=== PATIENT | male | born 1995 | race Caucasian/White ===

== ENCOUNTER 2017-05-13 17:18 | Emergency (ER) | payer MEDICAID ==
--- NOTE | 2017-05-13 18:20 | ERNOTE ---
Upper Extremity HPI - General Extremities Pain Location: shoulder: left Time Seen by Provider: 05/13/17 17:29 Source: patient Exam Limitations: no limitations - Immun/Allergies/Home Medications Immunizations: IMMUNIZATION HX Immunizations Up to Date Yes History of Influenza Vaccine No Hx Pneumococcal Vaccination No Allergies/Adverse Reactions: Allergies Allergy/AdvReac Type Severity Reaction Status Date / Time Penicillins Allergy Verified 02/23/16 14:00 Home Medications: HOME MEDICATIONS Omeprazole [Prilosec] 20 mg PO DAILY 12/03/14 [Last Taken Unknown] Ibuprofen [Motrin] 800 mg PO TID PRN #60 tab 12/23/15 [Last Taken Unknown] Lisdexamfetamine Dimesylate [Vyvanse] 60 mg PO DAILY 12/23/15 [Last Taken Unknown] Ibuprofen [Motrin] 600 mg PO Q6H PRN #40 tab 02/23/16 [Last Taken Unknown] Cyclobenzaprine HCl [Flexeril] 10 mg PO TID PRN #30 tab 05/13/17 [Last Taken Unknown] - History of Present Illness Narrative: Patient was walking his dog several days ago and the dog took off running and he fell down and got drug for short ways and strained his left shoulder. He rates the pain as at least moderate in intensity and is having some difficulty using his left arm. Occurred: other - several days ago Location of Incident: other - sidewalk Severity: moderate Method of Injury: Reports: fell, twisted Reason for Fall: Reports: slipped Loss of Consciousness: Reports: no loss of consciousness Other Injuries: Reports: none Review of Systems - Review of Systems Constitutional: Present: See HPI EYE: Present: no symptoms reported ENT: Present: no symptoms reported Respiratory: Present: no symptoms reported Cardiology: Present: no symptoms reported Gastrointestinal/Abdominal: Present: no symptoms reported Genitourinary: Present: no symptoms reported Musculoskeletal: Present: no symptoms reported Skin: Present: See HPI Neurological: Present: no symptoms reported Endocrine: Present: no symptoms reported Hematologic/Lymphatic: Present: no symptoms reported Psych: Present: no symptoms reported - Patient's Past Medical History Patient History - Medical: ADHD, Anxiety, Depression Patient History - Cardiac/Respiratory: No pertinent hx Patient History - Cancer: No Hx of Cancer Patient History - Surgical Procedures: No surgical history Patient History - Other: None - Social History Living Situations: home Abuse History: No History of abuse Psych History: Hx of Anxiety, Hx of Depression Does anyone smoke in the home?: No Smoking Status: Current some day smoker Have you smoked in the past 12 months: Yes Do you dip or chew tobacco: No Alcohol Use: occasionally Drug Use: none - Immunizations Immunizations Up to Date: Yes Hx Pneumococcal Vaccination: No History of Influenza Vaccine: No Physical Exam - Physical Exam General Appearance: Present: wd/wn, alert, moderate distress Head Exam: Present: normal inspection, no evidence of injury Eye Exam: Normal inspection: bilateral, PERRL: bilateral Ears, Nose, Throat: Present: normal ENT inspection, H, normal pharynx Neck: Present: normal inspection, nontender Respiratory: Present: no respiratory distress, normal breath sounds, no accessory muscle use, chest nontender, lungs clear Cardiovascular/Chest: Present: regular rate, rhythm, no murmur, normal peripheral pulses Gastrointestinal/Abdominal: Present: normal bowel sounds, nontender, nondistended, soft, no organomegaly Rectal Exam: Present: deferred Back Exam: Present: normal inspection, normal range of motion Extremity Exam: Present: no edema, decreased range of motion, other - patient has decreased external rotation of left shoulder and somewhat decreased internal rotation left shoulder, also having some difficulty lifting the shoulder against resistance. Neurological Exam: Present: alert, oriented, normal mood/affect Skin Exam: Present: normal color, warm/dry Lymphatic Exam: Present: no adenopathy ED Progress - Vital Signs Patient's Vital Signs:: I have reviewed the patient's vital signs. Vital Signs: Vital Signs 05/13/17 17:29 Temperature 37.1 C Pulse Rate 120 H Respiratory 15 Rate Blood Pressure 140/91 O2 Sat by Pulse 99 Oximetry - X-Ray X-Ray #1 X-Ray: shoulder Interpretation: Reviewed by me - Progress/Reassessment Chief Complaint: Upper Extremity Injury/Problem Plan - Plan Plan: Patient be placed in a sling, will give him Flexeril for any of the difficulty or pain he may be having and he will follow-up with his family physician for ongoing care and possible referral. Patient has Motrin at home that he can take for nonsteroidal relief. Departure Clinical Impression: Sprain of shoulder and upper arm Qualifiers: Encounter type: initial encounter Laterality: left Qualified Code(s): S43.402A - Unspecified sprain of left shoulder joint, initial encounter - Departure Disposition: Home self-care Condition: Good Instructions: Shoulder Sprain Referrals: Vamsi Thayer DO [Primary Care Provider] - Prescriptions: Cyclobenzaprine HCl [Flexeril] 10 mg PO TID PRN #30 tab PRN Reason: MUSCLE SPASMS
[2017-05-13 18:41] VITALS: BP 132/76
== END 2017-05-13 18:37 | disposition home or self-care (01) ==
LOC: ER 17:18
DX: S43.402A Unspecified sprain of left shoulder joint, initial encounter (principal); W18.39XA Other fall on same level, initial encounter; Y93.K1 Activity, walking an animal; Y92.480 Sidewalk as the place of occurrence of the external cause; Y99.9 Unspecified external cause status; F90.9 Attention-deficit hyperactivity disorder, unspecified type; F41.8 Other specified anxiety disorders; F17.200 Nicotine dependence, unspecified, uncomplicated